=== PATIENT | male | born 1945 | race Caucasian/White ===

== ENCOUNTER 2022-11-25 15:21 | Emergency (ER) | payer MEDICARE, OTHER ==
[2022-11-25] MEDS ORDERED: Tetracaine 0.5% PF 4 ML BOT ONE (15:57)
[2022-11-25] MEDS ORDERED: Fluorescein Opthalmic Strip ONE (15:57)
== END 2022-11-25 17:31 | disposition home or self-care (01) ==
LOC: CSHERS 15:21
DX: B02.9 Zoster without complications (principal); F17.220 Nicotine dependence, chewing tobacco, uncomplicated; E11.9 Type 2 diabetes mellitus without complications
CPT/HCPCS: 99283

== ENCOUNTER 2023-06-14 11:46 | Outpatient (CLI) | payer MEDICARE ==
[2023-06-14 14:39] LABS: Anion Gap 13 mmol/L (10-20); BUN (Urea Nitrogen) 7 mg/dL (8.4-25.7); Calc. Creatinine Clearance 0 mL/min (70-130); Calcium 8.3 mg/dL (7.8-10.44); Carbon Dioxide 28 mmol/L (23-31); Chloride 104 mmol/L (98-107); Estimated GFR 92; Glucose 134 mg/dL (83-110); Potassium 3.6 mmol/L (3.5-5.1); Sodium 141 mmol/L (136-145)
== END 2023-06-14 11:47 | disposition home or self-care (01) ==
LOC: CSHLAB 11:46
PROVIDERS: ATTEND Surgery
DX: Z01.818 Encounter for other preprocedural examination (principal); C15.5 Malignant neoplasm of lower third of esophagus
CPT/HCPCS: 80048; 93005; 93010

== ENCOUNTER 2023-06-16 09:12 | Day surgery (SDC) | payer MEDICARE ==
[2023-06-16 10:32] VITALS: BMI 22.6
[2023-06-16] MEDS ORDERED: EPINEPHrine 1 MG/ML VIAL ONE (11:38)
[2023-06-16] MEDS ORDERED: Bupivacaine PF 0.5% 30 ML VIAL ONE (11:39)
[2023-06-16] MEDS ORDERED: PHENYLEPHRINE-NS 100 MCG/ML 10 ML SYRINGE ONE (11:40)
[2023-06-16] MEDS ORDERED: Lidocaine 1% PF 5 ML VIAL ONE (11:40)
[2023-06-16] MEDS ORDERED: Rocuronium Bromide 10 MG/ML (10ML VIAL) ONE (11:40)
[2023-06-16] MEDS ORDERED: PROPOFOL 20 ML ONE (11:41)
[2023-06-16] MEDS ORDERED: fentaNYL 50 mcg/mL 1 mL Vial ONE (11:41)
[2023-06-16] MEDS ORDERED: CEFAZOLIN 2 GM VIAL ONE (11:47)
[2023-06-16] MEDS ORDERED: SUGAMMADEX SODIUM 200 MG/2 ML VIAL ONE (11:54)
[2023-06-16] MEDS ORDERED: HYDROcodone/Acetaminophen 5/325 mg Tablet PO PRN (12:51)
[2023-06-16] MEDS ORDERED: Acetaminophen 325 MG TAB PO PRN (12:51)
== END 2023-06-16 13:45 | disposition home or self-care (01) ==
LOC: CSHSDC 09:12
PROVIDERS: ATTEND Surgery
PROC: 0DH63UZ Insertion of Feeding Device into Stomach, Percutaneous Approach (ICD-10-PCS; principal; 2023-06-16)
PROC: 0JH60WZ Insertion of Totally Implantable Vascular Access Device into Chest Subcutaneous Tissue and Fascia, Open Approach (ICD-10-PCS; 2023-06-16)
DX: C15.9 Malignant neoplasm of esophagus, unspecified (principal); E10.9 Type 1 diabetes mellitus without complications; I48.91 Unspecified atrial fibrillation; F17.220 Nicotine dependence, chewing tobacco, uncomplicated
CPT/HCPCS: 36561; 43246; 71045; C1788; J0171; J3010; J0665; J1642; J2704